=== PATIENT | male | born 1960 | race African-American/Black ===

== ENCOUNTER 2025-02-01 00:59 | Inpatient (IN) | payer SELFPAY ==
[~2025-02-01] VITALS: Ht 177.8 cm; Wt 80.5 kg
[2025-02-01 01:44] LABS: BASOPHILS % 0.2 % (0.0-2.0); HEMATOCRIT. 40.7 % (42.0-52.0); HEMOGLOBIN. 13.2 g/dL (14.0-18.0); MEAN CORPUSCULAR HEMOGLOBIN 28.2 pg (28.0-32.0); MEAN CORPUSCULAR HGB CONC 32.6 g/dL (31.0-37.0); MEAN CORPUSCULAR VOLUME 86.7 fL (80.0-94.0); MEAN PLATELET VOLUME 7.1 fl (7.4-10.4); MONOCYTES % 9.3 % (2.0-8.0); NEUTROPHILS % 73.5 % (40.0-76.0); PLATELET 261 x1000/uL (130-400); RED BLOOD CELL COUNT 4.69 mill/uL (4.7-6.1); RED CELL DISTRIBUTION WIDTH 17.2 % (11.6-14.6); WHITE BLOOD COUNT 6.5 x1000/uL (4.5-11.0)
[2025-02-01 01:54] LABS: CHLORIDE 99 mEq/L (98-107); POTASSIUM 4.6 mEq/L (3.5-5.1); SODIUM 140 mEq/L (136-145)
[2025-02-01 01:55] LABS: CALCIUM 9.5 mg/dL (8.7-10.4); CARBON DIOXIDE 33 mEq/L (21-32)
[2025-02-01 02:00] LABS: CREATININE 1.1 mg/dL (0.6-1.3); ETHANOL BLOOD 20 mg/dL (<10); GLUCOSE 114 mg/dL (70-105); UREA NITROGEN BLOOD 8 mg/dL (9-23)
[2025-02-01 02:01] LABS: TROPONIN I HIGH SENSITIVITY 7 ng/L (3.0-53)
[2025-02-01] MEDS: SODIUM CHLORIDE 0.9% (SEPSIS BOLUS) IV ONE (02:27)
[2025-02-01 02:29] LABS: INR 0.9; PARTIAL THROMBOPLASTIN TIME 23.1 sec (23.4-31.0); PROTHROMBIN TIME 10.2 sec (9.6-11.0)
[2025-02-01] MEDS: PIPERACILLIN/TAZO 3.375G/50ML 50 ML IV ONE (02:34)
[2025-02-01] MEDS: METHYLPREDNISOLONE SOD SUCC 125MG/2ML (ACT-O-VIAL) IV STA (02:34)
[2025-02-01] MEDS: IPRATROPIUM BROMIDE (0.02%) 0.5MG/2.5ML NEB HHN STA (03:54)
[2025-02-01] MEDS: ALBUTEROL (0.083%) 2.5MG/3ML NEB HHN STA (03:54)
[2025-02-01 03:55] VITALS: PULSE 90; RESP 20; O2SAT 97
[2025-02-01] MEDS: VANCOMYCIN 1G PREMIX 200 ML IV SCH (04:03)
[2025-02-01] MEDS ORDERED: IPRATROPIUM/ALBUTEROL 0.5-3(2.5)MG/3ML NEB HHN PRN ×2 (04:15→11:15)
[2025-02-01] MEDS ORDERED: CLONIDINE 0.1MG TABLET PO PRN ×2 (04:15→11:15)
[2025-02-01] MEDS ORDERED: METHYLPREDNISOLONE SOD SUCC 40MG/ML (ACT-O-VIAL) IV SCH (04:15)
[2025-02-01] MEDS ORDERED: ACETAMINOPHEN 325MG TABLET PO PRN ×4 (04:15→11:15)
[2025-02-01] MEDS ORDERED: CEFTRIAXONE 1GM/50ML 50 ML IV SCH (04:15)
[2025-02-01] MEDS ORDERED: ONDANSETRON HCL 4MG/2ML INJ IV PRN ×2 (04:15→11:15)
[2025-02-01] MEDS ORDERED: DOCUSATE SODIUM 100MG CAPSULE PO PRN ×2 (04:15→11:15)
[2025-02-01] MEDS ORDERED: GUAIFENESIN-DM 200MG-20MG/10ML UDC PO PRN (04:15)
[2025-02-01] MEDS ORDERED: MAGNESIUM/ALUMINUM HYDROXIDE/SIMETHICONE 30ML UDC PO PRN (04:15)
[2025-02-01] MEDS ORDERED: AZITHROMYCIN 500MG/250ML 250 ML IV SCH (04:15)
[2025-02-01] MEDS ORDERED: LORAZEPAM 2MG/ML INJ IV PRN (04:45)
[2025-02-01] MEDS ORDERED: FOLIC ACID 1 MG, THIAMINE HCL 100 MG, MVI, ADULT NO.1 10 ML in DEXTROSE 5% WATER 1,000 ML IV ONE (04:45)
[2025-02-01] MEDS ORDERED: ACETYLCYSTEINE 200MG/ML 20% VIAL 4ML INH SCH (06:00)
[2025-02-01] MEDS ORDERED: PANTOPRAZOLE 40MG DR TABLET PO SCH (07:50)
[2025-02-01 08:37] LABS: *AMPHETAMINES SCREEN URINE NEGATIVE (NEGATIVE); *BARBITURATES SCREEN URINE NEGATIVE (NEGATIVE); *BENZODIAZEPINES SCREEN URINE NEGATIVE (NEGATIVE); *COCAINE SCREEN URINE NEGATIVE (NEGATIVE); CANNABINOID URINE SCREEN NEGATIVE (NEGATIVE); ECSTASY MDMA SCREEN URINE NEGATIVE (NEGATIVE); METHADONE URINE SCREEN NEGATIVE (NEGATIVE); OPIATES URINE SCREEN NEGATIVE (NEGATIVE); PHENCYCLIDINE URINE SCREEN PRESUMTIVE POSITIVE (NEGATIVE)
[2025-02-01 09:00] VITALS: BP 114/87; PULSE 96; RESP 17; TEMP 36.2; O2SAT 99
[2025-02-01] MEDS ORDERED: IPRATROPIUM/ALBUTEROL 0.5-3(2.5)MG/3ML NEB HHN SCH (09:00)
[2025-02-01 12:00] VITALS: BP 140/85; PULSE 78; RESP 15; TEMP 36; O2SAT 99
[2025-02-01] MEDS: ENOXAPARIN 40MG/0.4ML SYR SUBCUT SCH (13:16)
[2025-02-01 16:00] VITALS: BP 120/82; PULSE 84; RESP 15; TEMP 36.9; O2SAT 95
[2025-02-01] MEDS: PREDNISONE 20MG TABLET PO SCH (19:06)
[2025-02-01 19:57] VITALS: O2SAT 99
[2025-02-01] MEDS: IPRATROPIUM/ALBUTEROL 0.5-3(2.5)MG/3ML NEB HHN SCH (19:57)
[2025-02-01 20:00] VITALS: BP 120/75; PULSE 78; RESP 18; TEMP 36.3; O2SAT 96
[2025-02-02] VITALS: BP 141/87; PULSE 87; RESP 20; TEMP 36.4; O2SAT 97
[2025-02-02 02:25] VITALS: PULSE 70; RESP 20; O2SAT 98
[2025-02-02 04:00] VITALS: BP 126/83; PULSE 65; RESP 20; TEMP 36.2; O2SAT 98
[2025-02-02 06:30] LABS: CHLORIDE 103 mEq/L (98-107); SODIUM 142 mEq/L (136-145)
[2025-02-02 06:31] LABS: CALCIUM 9.9 mg/dL (8.7-10.4); CARBON DIOXIDE 32 mEq/L (21-32)
[2025-02-02 06:36] LABS: GLUCOSE 140 mg/dL (70-105); UREA NITROGEN BLOOD 15 mg/dL (9-23)
[2025-02-02 06:37] LABS: ALANINE AMINOTRANSFERASE 11 IU/L (10-49)
[2025-02-02 06:38] LABS: ALBUMIN 3.8 g/dL (3.2-4.8); ASPARTATE AMINOTRANSFERASE 15 IU/L (<34); BILIRUBIN TOTAL 0.4 mg/dL (0.1-1.0); PROTEIN TOTAL 6.5 g/dL (6.0-8.3)
[2025-02-02 06:47] LABS: BASOPHILS % 0.1 % (0.0-2.0); HEMATOCRIT. 38.9 % (42.0-52.0); HEMOGLOBIN. 12.7 g/dL (14.0-18.0); LYMPHOCYTES % 10.4 % (20.0-50.0); MEAN CORPUSCULAR HEMOGLOBIN 28.3 pg (28.0-32.0); MEAN CORPUSCULAR HGB CONC 32.8 g/dL (31.0-37.0); MEAN CORPUSCULAR VOLUME 86.1 fL (80.0-94.0); MEAN PLATELET VOLUME 7.7 fl (7.4-10.4); MONOCYTES % 9.7 % (2.0-8.0); NEUTROPHILS % 79.8 % (40.0-76.0); PLATELET 230 x1000/uL (130-400); RED BLOOD CELL COUNT 4.51 mill/uL (4.7-6.1); RED CELL DISTRIBUTION WIDTH 17.3 % (11.6-14.6)
[2025-02-02 08:00] VITALS: BP 136/83; PULSE 80; RESP 17; TEMP 36.5; O2SAT 98
[2025-02-02] MEDS ORDERED: AZIT250T12 MT (14:22)
[2025-02-02] MEDS ORDERED: P20 MT (14:22)
[2025-02-02] MEDS ORDERED: IPRA3AMP9 HHN (14:22)
[2025-02-02] MEDS ORDERED: PULM50 NEB (14:22)
== END 2025-02-02 13:00 | disposition left against medical advice (07) | DRG 133 ==
LOC: ER 00:59 → EDBEDREQ 04:34 → EDBEDREQTM 04:34 → ENRESERV 06:56 → 6WST 08:34
PROVIDERS: ADMIT Internal Medicine; ATTEND Internal Medicine
DX: J96.21 Acute and chronic respiratory failure with hypoxia (principal); J44.1 Chronic obstructive pulmonary disease with (acute) exacerbation; Z99.81 Dependence on supplemental oxygen; Z93.0 Tracheostomy status; E11.9 Type 2 diabetes mellitus without complications; D64.9 Anemia, unspecified; F10.10 Alcohol abuse, uncomplicated; Z20.822 Contact with and (suspected) exposure to COVID-19; Z87.891 Personal history of nicotine dependence; Z53.29 Procedure and treatment not carried out because of patient's decision for other reasons
CPT/HCPCS: 31720; 36415; 71045; 80048; 80053; 80305; 80320; 83605; 83880; 84145; 84484; 85025; 87426; 93005; 93970; 94070; 94640; 94760; 98960; 99291; G0378; J1650; J2543; J2919; J3370; J7030; J7512; G0480

== ENCOUNTER 2025-02-02 13:54 | Emergency (ER) | payer SELFPAY ==
[~2025-02-02] VITALS: Ht 177.8 cm; Wt 68.0 kg
[2025-02-02 13:55] VITALS: O2SAT 100
[2025-02-02] MEDS ORDERED: AZIT250T12 MT (14:22)
[2025-02-02] MEDS ORDERED: PULM50 NEB (14:22)
[2025-02-02] MEDS ORDERED: IPRA3AMP9 HHN (14:22)
[2025-02-02] MEDS ORDERED: P20 MT (14:22)
[2025-02-02 14:40] VITALS: BP 113/76; PULSE 87; RESP 14; TEMP 37.1; O2SAT 98
== END 2025-02-02 15:02 | disposition home or self-care (01) ==
LOC: ER 13:55
DX: J44.1 Chronic obstructive pulmonary disease with (acute) exacerbation (principal); E11.9 Type 2 diabetes mellitus without complications; Z79.51 Long term (current) use of inhaled steroids
CPT/HCPCS: 99283